=== PATIENT | male | born 1950 | race Caucasian/White ===

== ENCOUNTER 2023-01-31 04:30 | Inpatient (IN) | payer OTHER ==
[~2023-01-31] VITALS: Ht 182.9 cm; Wt 111.1 kg
[2023-01-31 04:39] VITALS: BP_SYST 150; PULSE 74; RESP 20; TEMP 98.3; O2SAT 99
[2023-01-31] MEDS ORDERED: cefTRIAXone 1 GM IVPB PREMIX 50 ML IV ONE (06:15)
[2023-01-31 06:52] LABS: BASOPHILS % (AUTO) 0.3 % (0.0-2.0); EOSINOPHILS # (AUTO) 0.2 K/uL (0.0-0.4); EOSINOPHILS % (AUTO) 1.4 % (0.0-4.0); HEMATOCRIT 36.4 % (36-54); HEMOGLOBIN 11.9 g/dL (14.0-18.0); LYMPHOCYTES # (AUTO) 0.8 K/uL (1.0-5.5); LYMPHOCYTES % (AUTO) 6.1 % (20.5-51.5); MEAN CORPUSCULAR HEMOGLOBIN 33 pg (27-31); MEAN CORPUSCULAR HGB CONC 33 % (32-36); MEAN CORPUSCULAR VOLUME 100 fL (79.0-98.0); MONOCYTES # (AUTO) 0.7 K/uL (0.0-1.0); NEUTROPHILS # (AUTO) 11.6 K/uL (1.8-7.7); NEUTROPHILS % (AUTO) 87.2 % (40.0-70.0); PLATELET COUNT (AUTO) 290 K/uL (130-430); RED BLOOD CELL COUNT(AUTO) 3.64 MIL/uL (4.2-6.2); RED CELL DISTRIBUTION WIDTH 15.2 % (9.0-15.0); WHITE BLOOD COUNT (AUTO) 13.3 K/uL (4.8-10.8)
[2023-01-31 07:03] LABS: INFLUENZA TYPE A negative (NEGATIVE); INFLUENZA TYPE B NEGATIVE (NEGATIVE)
[2023-01-31 07:05] LABS: ANION GAP 8 (5-15); CALCIUM 8.5 mg/dL (8.4-11.0); CARBON DIOXIDE 30 mmol/L (23-29); CHLORIDE 106 mmol/L (98-107); CREATININE 1.09 mg/dL (0.55-1.30); GLUCOSE 99 mg/dL (74-106); POTASSIUM 3.2 mmol/L (3.5-5.1); SODIUM SERUM 144 mmol/L (136-145); UREA NITROGEN, BLOOD 9 mg/dL (8-21)
[2023-01-31 07:12] LABS: ALANINE AMINOTRANSFERASE 34 U/L (12-78); ASPARTATE AMINOTRANSFERASE 25 U/L (10-37); TOTAL BILIRUBIN 1.3 mg/dL (0.0-1.0); TOTAL PROTEIN, SERUM 7.2 g/dL (6.4-8.3)
[2023-01-31] MEDS ORDERED: AMIKACIN SULFATE 750 MG in D5W 100 ML IV ONE (07:30)
[2023-01-31] MEDS ORDERED: AMIKACIN SULFATE 1000 MG/4 ML VIAL ONE (07:30)
[2023-01-31] MEDS ORDERED: POTASSIUM CHLORIDE 20 MEQ TAB.PRT.SR PO ONE (08:00)
[2023-01-31] MEDS ORDERED: ALPR0.25 PO (08:13)
[2023-01-31] MEDS ORDERED: SERT100T PO (08:13)
[2023-01-31] MEDS ORDERED: CHOL200019 PO (08:13)
[2023-01-31] MEDS ORDERED: ASPI-989 PO (08:13)
[2023-01-31] MEDS ORDERED: DICY10SO PO (08:13)
[2023-01-31] MEDS ORDERED: METF-518 PO (08:13)
[2023-01-31] MEDS ORDERED: WARF1TAB84 PO (08:13)
[2023-01-31] MEDS ORDERED: CILO100T3 PO (08:13)
[2023-01-31] MEDS ORDERED: LOSA-413 PO (08:13)
[2023-01-31] MEDS ORDERED: METO25TA6 PO (08:13)
[2023-01-31] MEDS ORDERED: ATOR40TA68 PO (08:13)
[2023-01-31] MEDS ORDERED: ranitidine PO (08:13)
[2023-01-31] MEDS: NICOTINE 21 MG/24 HR PATCH.TD24 TD SCH ×2 (08:29→08:58)
[2023-01-31 11:40] VITALS: BP_SYST 167; PULSE 78; RESP 16; TEMP 97.9
[2023-01-31] MEDS ORDERED: ALPRAZolam 0.25 MG TABLET PO PRN (12:15)
[2023-01-31] MEDS ORDERED: LOSARTAN POTASSIUM 50 MG TABLET (COZAAR) PO ONE (12:30)
[2023-01-31] MEDS: AZITHROMYCIN 250 MG in NS 250 ML IV SCH (13:14)
[2023-01-31] MEDS ORDERED: cefTRIAXone 1 GM IVPB PREMIX 50 ML IV SCH (14:00)
[2023-01-31] MEDS: FUROSEMIDE 20 MG TABLET PO SCH ×2 (15:46→20:19)
[2023-01-31 16:00] VITALS: BP_SYST 175; PULSE 60; RESP 17; TEMP 98.4; O2SAT 96
[2023-01-31] MEDS ORDERED: BARICITINIB -Non-Formulary 2 MG TABLET PO ONE (16:00)
[2023-01-31 16:15] LABS: INR 8.7 (0.80-1.20); PROTHROMBIN TIME 81.5 SECS (9.5-12.5)
[2023-01-31] MEDS ORDERED: hydrALAZINE HCL 20 MG/ML VIAL IVP PRN (16:30)
[2023-01-31] MEDS ORDERED: PHYTONADIONE 10 MG/ML AMP SUBCUT ONE (17:00)
[2023-01-31] MEDS ORDERED: hydrALAZINE HCL 25 MG TABLET PO ONE (17:00)
[2023-01-31] MEDS: ALBUTEROL MDI INHALATION 8 GM INH INH SCH (17:07)
[2023-01-31] MEDS: DICYCLOMINE HCL 10 MG CAPSULE PO PRN (19:28)
[2023-01-31 20:00] VITALS: BP_SYST 174; PULSE 68; RESP 18; TEMP 98; O2SAT 93; O2SAT 96
[2023-01-31] MEDS: METHYLPREDNISOLONE SOD SUCC 40 MG/ML VIAL IVP SCH (20:08)
[2023-01-31] MEDS: hydrALAZINE HCL 25 MG TABLET PO SCH (22:07)
[2023-02-01] VITALS (10 sets, daily range): BP systolic 145–171; PULSE 66–87; RESP 17–21; TEMP 97.9–99; O2SAT 95–98
[2023-02-01] MEDS: ALBUTEROL MDI INHALATION 8 GM INH INH SCH ×5 (03:34→21:39)
[2023-02-01 05:27] LABS: BASOPHILS % (AUTO) 0.5 % (0.0-2.0); EOSINOPHILS % (AUTO) 0.1 % (0.0-4.0); HEMATOCRIT 36.6 % (36-54); HEMOGLOBIN 12.1 g/dL (14.0-18.0); LYMPHOCYTES # (AUTO) 0.6 K/uL (1.0-5.5); LYMPHOCYTES % (AUTO) 8.4 % (20.5-51.5); MEAN CORPUSCULAR HEMOGLOBIN 33 pg (27-31); MEAN CORPUSCULAR HGB CONC 33 % (32-36); MEAN CORPUSCULAR VOLUME 99 fL (79.0-98.0); MONOCYTES # (AUTO) 0.1 K/uL (0.0-1.0); MONOCYTES % (AUTO) 1.3 % (1.7-9.3); NEUTROPHILS # (AUTO) 6.9 K/uL (1.8-7.7); NEUTROPHILS % (AUTO) 89.7 % (40.0-70.0); PLATELET COUNT (AUTO) 258 K/uL (130-430); RED BLOOD CELL COUNT(AUTO) 3.68 MIL/uL (4.2-6.2); RED CELL DISTRIBUTION WIDTH 15.3 % (9.0-15.0); WHITE BLOOD COUNT (AUTO) 7.7 K/uL (4.8-10.8)
[2023-02-01 05:28] LABS: INR 3.1 (0.80-1.20); PROTHROMBIN TIME 30.6 SECS (9.5-12.5)
[2023-02-01 05:37] LABS: ANION GAP 9 (5-15); CALCIUM 8.7 mg/dL (8.4-11.0); CARBON DIOXIDE 28 mmol/L (23-29); CHLORIDE 106 mmol/L (98-107); CREATININE 0.93 mg/dL (0.55-1.30); GLUCOSE 121 mg/dL (74-106); SODIUM SERUM 143 mmol/L (136-145); UREA NITROGEN, BLOOD 10 mg/dL (8-21)
[2023-02-01] MEDS: hydrALAZINE HCL 25 MG TABLET PO SCH ×3 (06:32→23:41)
[2023-02-01] MEDS: SERTRALINE HCL 50 MG TABLET PO SCH (08:24)
[2023-02-01] MEDS: LOSARTAN POTASSIUM 50 MG TABLET (COZAAR) PO SCH (08:25)
[2023-02-01] MEDS: FUROSEMIDE 20 MG TABLET PO SCH ×3 (08:25→20:46)
[2023-02-01] MEDS: ATORVASTATIN 20 MG TABLET PO SCH (08:25)
[2023-02-01] MEDS: METOPROLOL TARTRATE 25 MG TABLET PO SCH (08:26)
[2023-02-01] MEDS: METHYLPREDNISOLONE SOD SUCC 40 MG/ML VIAL IVP SCH ×2 (08:26→20:47)
[2023-02-01] MEDS: NICOTINE 21 MG/24 HR PATCH.TD24 TD SCH (08:26)
[2023-02-01] MEDS ORDERED: ASPIRIN 81 MG TABLET(ECOTRIN) PO SCH (09:00)
[2023-02-01] MEDS ORDERED: WARFARIN SODIUM 1 MG TABLET PO SCH ×2 (09:00→18:00)
[2023-02-01] MEDS: cefTRIAXone 1 GM IVPB PREMIX 50 ML IV SCH (09:12)
[2023-02-01] MEDS: BARICITINIB -Non-Formulary 2 MG TABLET PO SCH (09:13)
[2023-02-01] MEDS: DICYCLOMINE HCL 10 MG CAPSULE PO PRN ×3 (09:25→20:54)
[2023-02-01 11:44] LABS: INR 2.3 (0.80-1.20); PROTHROMBIN TIME 22.9 SECS (9.5-12.5)
[2023-02-01] MEDS: AZITHROMYCIN 250 MG in NS 250 ML IV SCH (13:20)
[2023-02-02] VITALS: BP_SYST 150; PULSE 77; RESP 18; TEMP 98.2; O2SAT 94
[2023-02-02 05:32] LABS: BASOPHILS % (AUTO) 0.2 % (0.0-2.0); HEMATOCRIT 35.1 % (36-54); HEMOGLOBIN 11.9 g/dL (14.0-18.0); INR 1.5 (0.80-1.20); LYMPHOCYTES # (AUTO) 0.7 K/uL (1.0-5.5); LYMPHOCYTES % (AUTO) 8.2 % (20.5-51.5); MEAN CORPUSCULAR HEMOGLOBIN 33 pg (27-31); MEAN CORPUSCULAR HGB CONC 34 % (32-36); MEAN CORPUSCULAR VOLUME 99 fL (79.0-98.0); MONOCYTES # (AUTO) 0.3 K/uL (0.0-1.0); MONOCYTES % (AUTO) 3.4 % (1.7-9.3); NEUTROPHILS # (AUTO) 7.2 K/uL (1.8-7.7); NEUTROPHILS % (AUTO) 88.2 % (40.0-70.0); PLATELET COUNT (AUTO) 283 K/uL (130-430); PROTHROMBIN TIME 15.1 SECS (9.5-12.5); RED BLOOD CELL COUNT(AUTO) 3.56 MIL/uL (4.2-6.2); RED CELL DISTRIBUTION WIDTH 15.4 % (9.0-15.0); WHITE BLOOD COUNT (AUTO) 8.1 K/uL (4.8-10.8)
[2023-02-02 05:47] LABS: ALANINE AMINOTRANSFERASE 30 U/L (12-78); ALBUMIN 2.9 g/dL (3.4-4.8); ANION GAP 7 (5-15); ASPARTATE AMINOTRANSFERASE 24 U/L (10-37); CALCIUM 8.9 mg/dL (8.4-11.0); CARBON DIOXIDE 30 mmol/L (23-29); CHLORIDE 105 mmol/L (98-107); CREATININE 1.04 mg/dL (0.55-1.30); GLUCOSE 126 mg/dL (74-106); SODIUM SERUM 142 mmol/L (136-145); UREA NITROGEN, BLOOD 15 mg/dL (8-21)
[2023-02-02] MEDS: hydrALAZINE HCL 25 MG TABLET PO SCH ×2 (06:08→13:05)
[2023-02-02 07:30] VITALS: O2SAT 96
[2023-02-02 07:49] VITALS: BP_SYST 142; PULSE 73; RESP 18; TEMP 98.2
[2023-02-02 08:25] VITALS: O2SAT 95
[2023-02-02] MEDS: BARICITINIB -Non-Formulary 2 MG TABLET PO SCH (08:31)
[2023-02-02] MEDS: NICOTINE 21 MG/24 HR PATCH.TD24 TD SCH (08:32)
[2023-02-02] MEDS: LOSARTAN POTASSIUM 50 MG TABLET (COZAAR) PO SCH (08:32)
[2023-02-02] MEDS: SERTRALINE HCL 50 MG TABLET PO SCH (08:32)
[2023-02-02] MEDS: ALBUTEROL MDI INHALATION 8 GM INH INH SCH (08:32)
[2023-02-02] MEDS: METOPROLOL TARTRATE 25 MG TABLET PO SCH (08:33)
[2023-02-02] MEDS: ATORVASTATIN 20 MG TABLET PO SCH (08:33)
[2023-02-02] MEDS: FUROSEMIDE 20 MG TABLET PO SCH (08:34)
[2023-02-02] MEDS: cefTRIAXone 1 GM IVPB PREMIX 50 ML IV SCH (08:36)
[2023-02-02] MEDS: METHYLPREDNISOLONE SOD SUCC 40 MG/ML VIAL IVP SCH (08:37)
[2023-02-02] MEDS ORDERED: FURO-149 PO (12:18)
[2023-02-02] MEDS ORDERED: DOXY100C PO (12:25)
[2023-02-02] MEDS: AZITHROMYCIN 250 MG in NS 250 ML IV SCH (13:05)
[2023-02-02 13:16] VITALS: BP_SYST 133; PULSE 73; RESP 18; TEMP 97.5; O2SAT 96
== END 2023-02-02 14:10 | disposition home or self-care (01) | DRG 177 ==
LOC: SED 04:30 → STU 08:16
PROVIDERS: ADMIT Specialist; ATTEND Specialist
PROC: XW033E5 Introduction of Remdesivir Anti-infective into Peripheral Vein, Percutaneous Approach, New Technology Group 5 (ICD-10-PCS; principal; 2023-01-31)
DX: U07.1 COVID-19 (principal); J12.82 Pneumonia due to coronavirus disease 2019; J96.01 Acute respiratory failure with hypoxia; J44.1 Chronic obstructive pulmonary disease with (acute) exacerbation; I13.0 Hypertensive heart and chronic kidney disease with heart failure and stage 1 through stage 4 chronic kidney disease, or unspecified chronic kidney disease; N17.9 Acute kidney failure, unspecified; I42.9 Cardiomyopathy, unspecified; J44.0 Chronic obstructive pulmonary disease with (acute) lower respiratory infection; I25.10 Atherosclerotic heart disease of native coronary artery without angina pectoris; I48.91 Unspecified atrial fibrillation; T45.515A Adverse effect of anticoagulants, initial encounter; I50.9 Heart failure, unspecified; N18.9 Chronic kidney disease, unspecified; E11.22 Type 2 diabetes mellitus with diabetic chronic kidney disease; Z20.822 Contact with and (suspected) exposure to COVID-19; Z86.16 Personal history of COVID-19; Z95.0 Presence of cardiac pacemaker; Z95.2 Presence of prosthetic heart valve; Z79.899 Other long term (current) drug therapy; Z79.01 Long term (current) use of anticoagulants; Z91.040 Latex allergy status; Z87.891 Personal history of nicotine dependence; Y92.89 Other specified places as the place of occurrence of the external cause
CPT/HCPCS: 36415; 71045; 80048; 80053; 82962; 83605; 83880; 84484; 85025; 85379; 85610-TC; 87040; 87081; 93005; 93306; 94640; 94660; 94760; 96365; 96375; 99285; G0378; J0278; J0360; J0456; J0696; J1030; J3430; J7050